=== PATIENT | male | born 1985 | race Hispanic/Latino ===

== ENCOUNTER → 2023-07-15 07:46 | Outpatient (REF) | payer OTHER, SELFPAY ==
[2023-07-15 10:01] LABS: % Basophils 0.7 % (0-2); % Eosinophils 2.6 % (0-6); % Immature Granulocytes 0.5 % (0-0.5); % Lymphocytes 32.1 % (20.5-51.1); % Monocytes 5.7 % (1.7-9.3); % Neutrophils 58.4 % (42.2-75.2); Absolute Eosinophils 0.1 10^3/uL (0-0.7); Absolute Lymphocytes 1.8 10^3/uL (1.2-3.4); Absolute Monocytes 0.3 10^3/uL (0.1-0.6); Absolute Neutrophils 3.2 10^3/uL (1.4-6.5); Hematocrit 46.6 % (39.0-52.0); Hemoglobin 16.8 g/dL (13.0-18.0); Mean Corp Hgb Conc. 36.1 g/dL (33.0-37.0); Mean Corpuscular Hgb 30.9 pg (27.0-31.0); Mean Corpuscular Volume 85.7 fL (80.0-94.0); Mean Platelet Volume 12.6 fL (7.4-10.4); Nucleated Red Blood Cells % 0 % (-); Platelet Count 208 10^3/uL (130-400); Red Blood Cell Count 5.44 10^6/uL (4.70-6.10); Red Cell Dist. Width 11.8 % (11.5-14.5); White Blood Cell Count 5.5 10^3/uL (4.8-10.8)
[2023-07-15 10:17] LABS: ALT (SGPT) 37 U/L (0-50); AST (SGOT) 29 U/L (17-59); Albumin 4.2 g/dl (3.5-5.0); Alkaline Phosphatase 76 U/L (38-126); Blood Urea Nitrogen 13 mg/dl (9-20); Calcium 9.3 mg/dl (8.4-10.2); Carbon Dioxide 22 mmol/L (22-30); Chloride 105 mmol/L (98-107); Glucose 106 mg/dl (70-99); HDL Cholesterol 45 mg/dl; LDL Cholesterol, Calculated 110 mg/dl; Sodium 138 mmol/L (135-145); Total Bilirubin 0.8 mg/dl (0.2-1.3); Total Cholesterol 179 mg/dl (50-199); Total Protein 6.8 g/dl (6.3-8.2); Triglyceride 122 mg/dl (10-149); Very Low Density Lipoprotein 24 mg/dl (0-30); eGFR > 60.00
[2023-07-15 10:25] LABS: Vitamin D, 25-OH*** 23.7 ng/mL (30-80)
[2023-07-15 12:40] LABS: Glycohemoglobin (HgbA1c) 5.2 % (4.0-5.6)
== END ==
LOC: CLINIC 07:46
PROVIDERS: ATTENDING PHYSICIAN Student in an Organized Health Care Education/Training Program
DX: Z00.00 Encounter for general adult medical examination without abnormal findings (principal)
CPT/HCPCS: 36415; 80053; 80061; 82306; 83036; 84443; 85025

== ENCOUNTER → 2024-02-07 07:35 | Outpatient (REF) | payer OTHER, SELFPAY ==
[2024-02-07 12:19] LABS: Vitamin D, 25-OH*** 30.8 ng/mL (30-80)
== END ==
LOC: CLINIC 07:35
PROVIDERS: ATTENDING PHYSICIAN Nurse Practitioner Adult Health
DX: E55.9 Vitamin D deficiency, unspecified (principal)
CPT/HCPCS: 36415; 82306

== ENCOUNTER → 2024-08-07 06:20 | Outpatient (REF) | payer OTHER, SELFPAY ==
[2024-08-07 09:45] LABS: Hematocrit 42.5 % (39.0-52.0); Hemoglobin 14.9 g/dL (13.0-18.0); Mean Corp Hgb Conc. 35.1 g/dL (33.0-37.0); Mean Corpuscular Hgb 30.8 pg (27.0-31.0); Platelet Count 161 10^3/uL (130-400); Red Blood Cell Count 4.83 10^6/uL (4.70-6.10); Red Cell Dist. Width 12.6 % (11.5-14.5); White Blood Cell Count 4.2 10^3/uL (4.8-10.8)
[2024-08-07 09:48] LABS: ALT (SGPT) 47 U/L (0-50); AST (SGOT) 36 U/L (17-59); Albumin 4.5 g/dl (3.5-5.0); Alkaline Phosphatase 72 U/L (38-126); Blood Urea Nitrogen 11 mg/dl (9-20); Calcium 9.2 mg/dl (8.4-10.2); Carbon Dioxide 27 mmol/L (22-30); Chloride 102 mmol/L (98-107); Glucose 99 mg/dl (70-99); HDL Cholesterol 41 mg/dl; LDL Cholesterol, Calculated 88 mg/dl; Potassium 3.4 mmol/L (3.5-5.1); Sodium 141 mmol/L (135-145); Total Bilirubin 0.8 mg/dl (0.2-1.3); Total Cholesterol 149 mg/dl (50-199); Total Protein 6.7 g/dl (6.3-8.2); Triglyceride 103 mg/dl (10-149); Very Low Density Lipoprotein 20 mg/dl (0-30); eGFR > 60.00
[2024-08-07 10:04] LABS: Vitamin D, 25-OH*** 32.7 ng/mL (30-80)
[2024-08-07 10:51] LABS: Glycohemoglobin (HgbA1c) 4.9 % (4.0-5.6)
== END ==
LOC: CLINIC 06:20
PROVIDERS: ATTENDING PHYSICIAN Nurse Practitioner Adult Health
DX: E55.9 Vitamin D deficiency, unspecified (principal); Z83.3 Family history of diabetes mellitus; Z00.00 Encounter for general adult medical examination without abnormal findings
CPT/HCPCS: 36415; 80053; 80061; 82306; 83036; 85027

== ENCOUNTER → 2024-12-06 06:38 | Outpatient (REF) | payer OTHER, SELFPAY ==
[2024-12-06 10:13] LABS: Blood Urea Nitrogen 20 mg/dl (9-20); Calcium 9.4 mg/dl (8.4-10.2); Carbon Dioxide 26 mmol/L (22-30); Chloride 106 mmol/L (98-107); Glucose 100 mg/dl (70-99); Potassium 3.8 mmol/L (3.5-5.1); Sodium 139 mmol/L (135-145); eGFR > 60.00
[2024-12-06 10:35] LABS: Vitamin D, 25-OH*** 32.7 ng/mL (30-80)
== END ==
LOC: CLINIC 06:38
PROVIDERS: ATTENDING PHYSICIAN Nurse Practitioner Adult Health
DX: E55.9 Vitamin D deficiency, unspecified (principal); R25.2 Cramp and spasm
CPT/HCPCS: 36415; 80048; 82306; 84443

== ENCOUNTER 2025-04-10 17:52 | Emergency (ER) | payer SELFPAY ==
[2025-04-10 18:00] VITALS: BP 139/95
[2025-04-10 18:15] LABS: Urine Character Clear (Clear)
[2025-04-10 18:40] LABS: Urine Red Blood Cell 0-2 /HPF (0-2); Urine White Cell 0-2 /HPF (0-5)
--- NOTE | 2025-04-10 21:54 | ED.GENMED ---
History of Present Illness
General
Chief Complaint: Abdominal Pain
Source: patient
Time Seen by Provider: 04/10/25 21:41
History of Present Illness
History of Present Illness:
39-year-old male with no significant past medical history presents to the emergency department for evaluation of left-sided testicular pain for the last 2+ weeks accompanied with dysuria and painful ejaculation. Patient denies any penile discharge,
hematuria, abdominal pain, flank pain, nausea or vomiting. Denies any history of similar. Notes that he is sexually active with 1 female partner, he states no concern for STI. No other concerns presently
Past History
Past History
ED Past Medical History: None
ED Past Surgical History: Orthopedic
Social History
Tobacco: Non-smoker
Alcohol: None
Drug: None
Personal:
Living: with family
Review of Systems
Review of Systems
All Other Systems: ROS reviewed and negative except as documented in HPI and ROS
Phy Exam
Physical Exam
Physical Exam:
GENERAL: Alert , in no apparent distress
EYE: conjunctiva clear
Head: Normocephalic atraumatic
NECK: Supple,
ENT: mmm.
LUNGS: no acute respiratory distress
GENITOURINARY: Uncircumcised, easily retractable and reducible foreskin, no urethral discharge, tenderness to the left epididymal head/testicle, positive cremasteric reflex bilateral
NEUROLOGICAL: Alert and oriented
SKIN: Warm and dry, skin intact.
MUSCULOSKELETAL: well perfused.
PSYCH: Normal and appropriate interaction.
Scores
Heart Failure Risk
Heart Failure Risk Score: Not Applicable
Heart Score for Chest Pain Patients
STEMI patient?: Not applicable
Withdrawal Assessment of Alcohol
Withdrawal Assessment Completed?: Not applicable
Course
Orders/Labs/Results
Orders:
Orders
04/10/25 18:09
UA Reflex to Culture [Urinalysis Reflex To Culture] Urgent
Date Specimen was Collected: 04/10/25
Time Specimen was Collected: 18:03
Urine Microscopic Reflex Cult Urgent
04/10/25 18:16
US Scrotum Urgent
Comment:
Reason For Exam: Left testicule pain
04/10/25 21:41
Add On - Microbiology Urgent
Tests Added?: GC/Chlamydia through Urine
04/10/25 21:53
Ceftriaxone Sodium [Rocephin] 500 mg IM NOW STA
Doxycycline [Vibramycin] 100 mg PO NOW STA
04/10/25 22:04
Ceftriaxone Sodium [Rocephin] 500.15 mg .ROUTE .STK-MED ONE
Abnormal Lab Results
04/10/25
18:09
Urine Bacteria (Reflex) Few A
(Negative)
Urine Albumin (Reflex) 2+ A
(Neg - Trace)
Vital Signs
Initial and Last Documented VS:
Initial Vital Signs
Temp Pulse Resp BP Pulse Ox
97.9 F 106 18 139/95 97
04/10/25 18:00 04/10/25 18:00 04/10/25 18:00 04/10/25 18:00 04/10/25 18:00
Last Documented Vital Signs
Temp Pulse Resp BP Pulse Ox
97.9 F 106 18 139/95 97
04/10/25 18:00 04/10/25 18:00 04/10/25 18:00 04/10/25 18:00 04/10/25 21:55
MDM/Problems Addressed
Differential Diagnosis Includes:
Epididymitis
Orchitis
STI
UTI
Torsion
Hernia
MDM/Problems Addressed:
39-year-old male presenting to the ER for evaluation of left-sided testicular pain x 2 weeks accompanied with urinary symptoms. Urine and ultrasound ordered from triage with ultrasound resulting in left-sided epididymitis. Patient does note he is
sexually active, I did send off STI panel however patient states he does not have concern for this. Will treat with Rocephin and doxycycline. Patient aware of return precautions to the ER, stable for discharge
*Radiology
Radiology exam reviewed: radiology read reviewed
*Pulse Oximetry
SaO2: 97
Oxygen Mode of Delivery: Room air
Patient hypoxic: no
*Critical Care Note
Total Time (30-74mins, 75-104mins- exclusive of procedures): Not Applicable
ED Attending Note
-
Portions of this chart may have been created with voice recognition software.� Occasional wrong word or��sound alike� substitutions may have occurred due to the inherent limitations of voice recognition software.
Discharge Plan
Departure
Patient Disposition: Home (Routine Discharge)
Date of Disposition: 04/10/25
Time of Disposition: 21:54
Patient with high blood pressure during this ER visit?: Yes
Discharge Problem:
Acute epididymitis
Instructions: Epididymitis and Orchitis
Prescriptions:
New
doxycycline hyclate 100 mg tablet
100 mg PO BID Qty: 19 0RF
Referrals:
THURMAN,NILES [Other]
Interventions
Interventions:
*Risk Screen - Suicide Last Done: 04/10/25 18:00
*General Assessment Last Done: 04/10/25 20:27
*Neglect/Abuse Screening Last Done: 04/10/25 20:27
*ED- Fall Risk Assessment Last Done: 04/10/25 20:27
*ED COVID-19 Vaccine History Last Done: 04/10/25 20:27
*ED Influenza Vaccine History Last Done: 04/10/25 20:27
LE-Iqvuvh-Imjpqpoobd Assessment Last Done: 04/10/25 20:27
Discharge Date and Time
Print Language: TOGOLESE
[2025-04-10] MEDS: VIBRAMYCIN 100 MG PO (22:00)
[2025-04-10] MEDS: ROCEPHIN 500 MG IM (22:00)
== END 2025-04-10 22:20 | disposition home or self-care (01) ==
LOC: EMR 17:52
PROVIDERS: Emergency Medicine; EMERGENCY PHYSICIAN Student in an Organized Health Care Education/Training Program
DX: N45.1 Epididymitis (principal); N50.812 Left testicular pain
CPT/HCPCS: 96372; 99284; 76870; 81003; 81015; 87491; 87591; 93976